=== PATIENT | male | born 1980 | race Caucasian/White ===

== ENCOUNTER 2021-10-22 11:16 | Emergency (ER) | payer BC ==
[2021-10-22] MEDS ORDERED: ALBUTEROL 1 PUFF INH STA (13:29)
--- NOTE | 2021-10-22 13:36 | ED Physician Documentation ---
History of Present Illness - Stated complaint Stated Complaint: FEVER,COUGH,WEAKNESS/COVID EXPOSURE - Additonal information Additional information: 41-year-old male presents the emergency department for evaluation of what he believes to be COVID-19 infection. He presents with his girlfriend/partner who is also here with similar. This gentleman began having cough cold congestion on 10 October. His girlfriend tested positive on the fourth. His son who had visited him over the subsequently tested positive just after he left the [place]. Patient reports that unless he is taking Tylenol Cold and flu he has persistent fevers. Cough is especially troublesome keeping him up at night when supine. He denies loss of taste or smell. He has had some mild diarrhea but no vomiting. Does not carry history of hypertension or diabetes. Is not immune compromise. Denies any tobacco use. Unfortunately due to the duration of symptoms he is not a candidate for Mab therapy. pt is not yet vaccinated for COVID 19 Review of Systems Constitutional: reports: Fever, Myalgias, Fatigue Eyes: reports: Reviewed and negative Ears: reports: Reviewed and negative Nose: reports: Rhinorrhea / runny nose, Congestion Throat: reports: Reviewed and negative Cardiac: denies: Chest pain / pressure, Palpitations, Pedal edema, Calf pain GI: reports: Reviewed and negative : reports: Reviewed and negative Skin: reports: Reviewed and negative Musculoskeletal: reports: Reviewed and negative Neurologic: reports: Reviewed and negative PD PAST MEDICAL HISTORY - Present Medications Home Medications: Ambulatory Orders Medication Instructions Recorded Confirmed Albuterol Sulf [Ventolin Hfa 1 - 2 puffs INH Q4HR PRN #1 inhaler 10/22/21 Inhaler] Amox/Clav 875/125 [Augmentin] 1 each PO Q12H #14 tablet 10/22/21 Azithromycin [Zithromax] 0 mg PO DAILY #6 tablet 10/22/21 Benzonatate [Tessalon] 100 mg PO TID PRN #30 cap 10/22/21 - Allergies Allergies/Adverse Reactions: Allergies Allergy/AdvReac Type Severity Reaction Status Date / Time No Known Drug Allergies Allergy Verified 10/22/21 14:20 PD ED PE NORMAL - General General: Alert and oriented X 3, No acute distress - HEENT HEENT: PERRL - Neck Neck: Supple, no meningeal sign - Cardiac Cardiac: RRR, No murmur - Respiratory Respiratory: No respiratory distress, Other (scattered rales posterior lowr lung goldberg bilaterally) - Abdomen Abdomen: Normal bowel sounds, Soft, Non tender, Non distended - Back Back: No CVA TTP, No spinal TTP - Derm Derm: Normal color, No rash - Extremities Extremities: No deformity - Neuro Neuro: Alert and oriented X 3 Eye Opening: Spontaneous Motor: Obeys Commands - Psych Psych: Normal mood Results - Vitals Vitals: Vital Signs - 24 hr 10/22/21 10/22/21 14:00 14:07 Temperature 37.2 C Heart Rate 102 H 109 H Respiratory 18 20 Rate Blood Pressure 120/71 O2 Saturation 99 Oxygen O2 Source Room air - Labs Labs: Laboratory Tests 10/22/21 10/22/21 13:43 13:43 WBC 4.2 L RBC 5.19 Hgb 15.4 Hct 45.0 MCV 86.7 MCH 29.7 MCHC 34.2 RDW 12.4 Plt Count 268 MPV 9.1 Manual Slide Review Indicated Sodium 135 Potassium 4.2 Chloride 93 L Carbon Dioxide 29 Anion Gap 13.0 BUN 12 Creatinine 0.9 Estimated GFR (MDRD) 94 Glucose 139 H Calcium 8.9 Total Bilirubin 1.2 H AST 37 ALT 25 Alkaline Phosphatase 48 Total Protein 7.8 Albumin 3.0 L Globulin 4.8 H Albumin/Globulin Ratio 0.6 L Lipase 36 - Rads (name of study) CXR Radiology: Final report received (Patchy bilateral airspace base opacities are suspicious for pneumonia including the possibility of viral agents such as COVID-19) PD MEDICAL DECISION MAKING - ED course Complexity details: reviewed results, re-evaluated patient, d/w patient ED course: 41-year-old male who is not yet vaccinated for COVID-19 presents to the emergency department for evaluation of persistent cough and fevers. His sympt oms began on 10 October. His son had tested positive for COVID-19. Patient presents with room air saturations of 99% and no tachypnea or labored breathing. He did have scattered rails. Chest x-ray confirms bilateral airspace opacity consistent with a pneumonia. His COVID-19 test is pending but we presume COVID-19 pneumonia. Screening labs are consistent with COVID-19 infection including a mild leukocytosis. Patient is unfortunately not a candidate for Mab therapy given the duration of his symptoms. He also does not meet the requirements for hospitalization given the lack of hypoxia or labored breathing. I am he will be started on Augmentin and azithromycin. Patient will be sent a prescription for albuterol as well as Tessalon Perles. Advised to sleep in the prone position. Emergent worrisome return precautions were discussed. Departure - Departure Disposition: 01 Home, Self Care Clinical Impression: Pneumonia due to COVID-19 virus Condition: Stable Record reviewed to determine appropriate education?: Yes Instructions: Pneumonia Dc Prescriptions: Albuterol Sulf [Ventolin Hfa Inhaler] 1 - 2 puffs INH Q4HR PRN #1 inhaler PRN Reason: Shortness Of Air/Wheezing Amox/Clav 875/125 [Augmentin] 1 each PO Q12H #14 tablet Benzonatate [Tessalon] 100 mg PO TID PRN #30 cap PRN Reason: Cough Azithromycin [Zithromax] 0 mg PO DAILY #6 tablet Comments: Alex you were seen today in the emergency department for persistent cough and fevers. Your son had tested positive for COVID-19 as well as your partner. Your COVID-19 test is pending but we presume that you are positive for it. Your chest x-ray does show pneumonia which is consistent with COVID-19. Unfortunately due to the duration of your symptoms you are not a candidate for monoclonal antibodies. However reassuringly on the opposite side of the coin, you do not meet requirements to be admitted to the hospital as your breathing is nonlabored and your oxygen levels are normal. I sent a prescription for the antibiotics to the [facility] in [place]. I would also like you to use the Tessalon Perles to help subdue your cough. Use the albuterol with the spacer 4-6 times a day. This can help reduce the severity of cough and encourage you to take a deep breaths. All people with COVID-19 are encouraged to sleep on their stomach to help improve the lung capacity. If at any point you are having worsening symptoms, labored breathing, have oxygen levels less than 92% then please return immediately to the ER for a second evaluation.
[2021-10-22 13:52] LABS: BASOPHILS % (AUTO) 0.5 %; EOSINOPHILS % (AUTO) 0.2 %; HGB - HEMOGLOBIN 15.4 g/dL (14.0-18.0); LYMPHOCYTES # (AUTO) 0.5 10^3/uL (1.5-3.5); LYMPHOCYTES % (AUTO) 10.8 %; MEAN CORPUSCULAR HEMOGLOBIN 29.7 pg (27.0-31.0); MEAN CORPUSCULAR HGB CONC 34.2 g/dL (32.0-36.0); MEAN CORPUSCULAR VOLUME 86.7 fL (80.0-94.0); MEAN PLATELET VOLUME 9.1 fL (7.4-11.4); MONOCYTES # (AUTO) 0.3 10^3/uL (0.0-1.0); MONOCYTES % (AUTO) 7.4 %; NEUTROPHILS # (AUTO) 3.4 10^3/uL (1.5-6.6); NEUTROPHILS % (AUTO) 80.4 %; PLT - PLATELET COUNT 268 10^3/uL (130-450); RED BLOOD COUNT 5.19 10^6/uL (4.70-6.10); RED CELL DISTRIBUTION WIDTH 12.4 % (12.0-15.0); WHITE BLOOD COUNT 4.2 x10^3/uL (4.8-10.8)
[2021-10-22 14:06] LABS: SLIDE REVIEW? Indicated
[2021-10-22 14:09] LABS: ALBUMIN/GLOBULIN RATIO 0.6 (1.0-2.2); BILIRUBIN,TOTAL 1.2 mg/dL (0.2-1.0); CALCIUM 8.9 mg/dL (8.5-10.3); CREATININE 0.9 mg/dL (0.6-1.2); POTASSIUM 4.2 mmol/L (3.5-5.0); TOTAL PROTEIN 7.8 g/dL (6.7-8.2)
--- NOTE | 2021-10-22 14:11 | XRAY Report ---
PROCEDURE: Chest 1 View X-Ray INDICATIONS: chest pain TECHNIQUE: One view of the chest was acquired. COMPARISON: None. FINDINGS: Surgical changes and devices: None. Lungs and pleura: No pleural effusions or pneumothorax. Patchy airspace opacities are seen throughou t the right lung and likely at the left lung base. Mediastinum: Mediastinal contours appear normal. Heart size is normal. Bones and chest wall: No suspicious bony lesions. Overlying soft tissues appear unremarkable. IMPRESSION: Patchy bilateral airspace opacities are suspicious for pneumonia, including possibly with viral agent s such as Covid-19. Reviewed by: Del Knapp MD on 10/22/2021 2:09 PM PST Approved by: Del Knapp MD on 10/22/2021 2:09 PM PST Station ID: [id number]
[2021-10-22 15:25] LABS: PLATELET ESTIMATE, MANUAL NORMAL (130-450,000) (NORMAL); PLATELET MORPHOLOGY NORMAL APPEARANCE (NORMAL); RBC MORPHOLOGY (MULTIPLE) NORMAL APPEARANCE (NORMAL); WBC MORPHOLOGY (MULTIPLE) NORMAL APPEARANCE (NORMAL)
[2021-10-22 15:49] VITALS: BP 129/72
== END 2021-10-22 15:43 | disposition home or self-care (01) ==
LOC: ED 11:16
DX: U07.1 COVID-19 (principal); J12.82 Pneumonia due to coronavirus disease 2019
CPT/HCPCS: 36415; 80053; 83690; 85025; 94640; 99283; 99284